=== PATIENT | female | born 1945 | race Caucasian/White ===

== ENCOUNTER 2020-11-05 12:42 | Outpatient (REF) | payer MEDICARE, MEDICAID, SELFPAY ==
[2020-11-05 13:07] VITALS: BP 129/76; PULSE 77; RESP 16; TEMP 36.6; O2SAT 95
== END 2020-11-05 12:43 | disposition home or self-care (01) ==
LOC: HO.MS 12:42
PROVIDERS: PCP Family Medicine; Visit Provider Ophthalmology
PROC: (CPT 66821; principal; 2020-11-05 17:00)
DX: H26.491 Other secondary cataract, right eye (principal); Z83.511 Family history of glaucoma; H40.013 Open angle with borderline findings, low risk, bilateral; Z96.1 Presence of intraocular lens; J44.9 Chronic obstructive pulmonary disease, unspecified; I10 Essential (primary) hypertension; E11.9 Type 2 diabetes mellitus without complications; Z79.51 Long term (current) use of inhaled steroids; Z79.82 Long term (current) use of aspirin; Z79.84 Long term (current) use of oral hypoglycemic drugs; Z88.2 Allergy status to sulfonamides; Z88.8 Allergy status to other drugs, medicaments and biological substances
CPT/HCPCS: 66821

== ENCOUNTER 2023-03-30 12:40 | Outpatient (REF) | payer MEDICARE, MEDICAID, SELFPAY ==
[2023-03-30 15:50] VITALS: BP 166/74; PULSE 60; O2SAT 99
[2023-03-30 16:15] VITALS: BP 140/65; PULSE 73; RESP 16; TEMP 36.9; O2SAT 98
== END 2023-03-30 12:41 | disposition home or self-care (01) ==
LOC: HO.MS 12:40
PROVIDERS: PCP Family Medicine; Visit Provider Ophthalmology
PROC: (CPT 37609; principal; 2023-03-30 14:30)
DX: M31.6 Other giant cell arteritis (principal)
CPT/HCPCS: 88305

== ENCOUNTER 2023-05-27 12:22 | Emergency (ER) | payer MEDICARE, MEDICAID, SELFPAY ==
--- NOTE | ~2023-05-27 | US_ITS ---
EXAMINATION: US VENOUS ULTRASOUND WITH DOPPLER LOWER EXTREMITY, RIGHT CLINICAL INFORMATION: Right leg pain COMPARISON: None available. TECHNIQUE: Ultrasound of the deep veins is performed from the hip to the calf with compression sonography and color and pulse Doppler assessment. Spectral analysis with color-flow imaging is performed. FINDINGS: There is normal venous compression and respiratory variation and augmented flow. The visualized common femoral vein, superficial femoral vein, profunda femoral vein, popliteal vein, and the trifurcation region shows no evidence of deep venous thrombosis. There is no significant popliteal fossa cyst. If the patient's symptoms persist, followup ultrasound in 5 days 7 days might be of value to exclude proximal propagation from a non-visualized calf vein. US/US venous duplex LE RT IMPRESSION: No DVT demonstrated in the right lower extremity.
--- NOTE | ~2023-05-27 | XR_ITS ---
EXAMINATION: XR ANKLE, RIGHT XR FOOT, RIGHT CLINICAL INFORMATION: Pain. COMPARISON: None available. TECHNIQUE: Right ankle 2 views. Right foot 3 views. FINDINGS: ANKLE: There is diffuse soft tissue swelling, including prominent bimalleolar soft tissue swelling. Ankle mortise is maintained. Subtle subchondral cysts in the medial malleolus and the distal fibula suggesting mild talocrural joint arthritis. There are small ossifications distal to the medial malleolus, medial to the talus, from age-indeterminate trauma. No acute fracture is otherwise seen. FOOT: Dorsal foot soft tissue swelling. No visible acute fracture or dislocation. Alignment is anatomic. Tarsometatarsal alignment is maintained. Mild dorsal spurring in the midfoot, on the lateral projection. Anterior calcaneal process appears intact. Moderate plantar calcaneal spur. Small posterior calcaneal spurring. Mild tibiotalar joint effusion. XR/XR foot RT min 3V IMPRESSION: ANKLE: Prominent soft tissue swelling. Small ossifications distal to the medial malleolus, from age-indeterminate trauma. Mild talocrural joint arthritis. Mild tibiotalar joint effusion. FOOT: No radiographic evidence of acute fracture or malalignment. Dorsal foot soft tissue swelling. Calcaneal spurring.
--- NOTE | ~2023-05-27 | XR_ITS ---
EXAMINATION: XR ANKLE, RIGHT XR FOOT, RIGHT CLINICAL INFORMATION: Pain. COMPARISON: None available. TECHNIQUE: Right ankle 2 views. Right foot 3 views. FINDINGS: ANKLE: There is diffuse soft tissue swelling, including prominent bimalleolar soft tissue swelling. Ankle mortise is maintained. Subtle subchondral cysts in the medial malleolus and the distal fibula suggesting mild talocrural joint arthritis. There are small ossifications distal to the medial malleolus, medial to the talus, from age-indeterminate trauma. No acute fracture is otherwise seen. FOOT: Dorsal foot soft tissue swelling. No visible acute fracture or dislocation. Alignment is anatomic. Tarsometatarsal alignment is maintained. Mild dorsal spurring in the midfoot, on the lateral projection. Anterior calcaneal process appears intact. Moderate plantar calcaneal spur. Small posterior calcaneal spurring. Mild tibiotalar joint effusion. XR/XR ankle RT min 3V IMPRESSION: ANKLE: Prominent soft tissue swelling. Small ossifications distal to the medial malleolus, from age-indeterminate trauma. Mild talocrural joint arthritis. Mild tibiotalar joint effusion. FOOT: No radiographic evidence of acute fracture or malalignment. Dorsal foot soft tissue swelling. Calcaneal spurring.
[2023-05-27 12:27] VITALS: BP 115/64; PULSE 96; RESP 18; TEMP 36.3; O2SAT 97; BMI 45.4
--- NOTE | 2023-05-27 12:27 | ED.GENADULT ---
HPI - General Adult General Chief complaint: Extremity Injury, Lower Stated complaint: Swollen foot Time Seen by Provider: 05/27/23 13:29 Source: patient Mode of arrival: ambulatory Limitations: no limitations History of Present Illness HPI narrative: Patient is a 70-year-old female with history of DM, high cholesterol presenting to the emergency department with complaint of right ankle and foot pain and swelling since yesterday morning. Patient reports that she was asymptomatic when she went to bed the night before. States that when she attempted to get out of bed to go to the bathroom yesterday morning, she developed severe pain to right foot. Then she noted the swelling and mild redness. Denies any numbness or tingling. Denies any injury to the area. Denies fevers. Denies chest pain, palpitations, shortness of breath. Does report some right calf pain. Did not take any [id number] medications prior to arrival. MD complaint: right foot pain Onset (ago): day(s) Location: right and lower extremity Radiation: proximal Severity: severe Severity scale (1-10): 10 Quality: aching Pain Consistency: constant Relieving factors: rest Exacerbating factors: movement and other (Weight-bearing) Associated symptoms: denies other symptoms Treatments prior to arrival: none Related Data Previous Rx's Medication Instructions Recorded naproxen 500 mg tablet 500 mg PO BID #30 tabs 05/27/23 Allergies Allergy/AdvReac Type Severity Reaction Status Date / Time Sulfa (Sulfonamide Allergy Swelling Verified 11/05/20 15:38 Antibiotics) hydrochlorothiazide AdvReac Fainting Verified 11/05/20 15:39 HORSE SERUM Allergy Anaphylaxis Uncoded 11/05/20 15:37 Review of Systems Review of Systems: As per HPI. Yes all other systems are reviewed and are negative Constitutional: Constitutional: Reports as per HPI [facility] Social History Social History Smoked in Last 30 Days: No Use of substances other than those prescribed or required for medical reasons: No Advance Directives: Yes Advance Directives Information Provided: No Advance Directives on File: No Physical Exam ED Vital Signs: Vital Signs - 24 hr 05/27/23 12:27 05/27/23 14:14 Temperature 97.3 F Pulse Rate 96 98 Respiratory Rate 18 16 Blood Pressure 115/64 140/72 H Pulse Oximetry 97 97 Oxygen Delivery Method Room Air Room Air BMI result Body Mass Index 45.4 Vital signs have been reviewed and appear to be correct. Blood pressure normal. Heart rate normal. Respiratory rate normal. Temperature normal. Oxygen saturation normal. Const General: cooperative, healthy appearing and no acute distress Orientation/consciousness: oriented to person, oriented to place, oriented to time and patient oriented x3 Limitations: no limitations [facility] Head: Yes normocephalic and Yes atraumatic Ears: external ears normal General nose exam: Normal external nose present Face and sinus: Yes face symmetric Mouth: oropharynx normal and moist mucous membranes Throat: Yes uvula midline Eyes Pupils: Equal, round and reactive pupils present Neck Neck: Yes normal visual inspection and Yes supple Resp Effort & Inspection: normal respiratory effort and able to speak in complete sentences Auscultation: clear to auscultation bilaterally Cardio Rate: regular rate Rhythm: regular rhythm Heart sounds: S1 normal heart sound present and S2 normal heart sound present GI Palpation (GI): Soft to palpation and nontender Auscultation: normoactive bowel sounds General: Yes no CVA tenderness Back/Spine/Pelvis Back: no CVA tenderness Skin General skin exam: elasticity normal and turgor normal Neuro General: oriented to person, oriented to place, oriented to time, patient oriented x3, moves all extremities, no focal motor deficits and CN's II-XI intact bilaterally Cranial nerves: Yes Equal, round and reactive pupils present Cognition (Neuro): normal cognition Extrem General: Yes full ROM Right lower extremity: lower leg Details: normal to inspection and tenderness Location: of the posterior calf, ankle Details: abnormal to inspection Details: erythematous (mild), tenderness Location: other (diffuse), edema Details: pitting and 2+, abnormal ROM Details: with range as follows (limited in all directions due to pain) and warmth Location: diffusely; no abrasions, no lacerations, no ecchymosis, no penetrating wound and achilles tendon exam normal and foot Details: normal capillary refill, tenderness (diffuse), toes with normal ROM, warmth Location: diffusely, edema Location: diffusely Details: pitting and 2+, vascular exam Details: dorsalis pedis pulse present, posterior tibial pulse present and normal capillary refill and motor-sensory exam Details: two point discrimination normal and light-touch normal; no abrasion, no laceration, no ecchymosis and no puncture wound Left lower extremity: normal to inspection, full ROM and normal capillary refill Psych Mental Status: mental status grossly normal Affect: normal affect Thought process: Normal thought process present Course Course Course Narrative: This is an RME: Additional HPI, ROS, PE not included below will be deferred to primary provider. This is a [id number], with a hx of DM type II, HTN, and COPD, presenting to the ER with a complaint of right foot swelling and pain since yesterday. No trauma or injury. Pain worsens with weight bearing - in wheelchair. Patient also endorsing some right calf pain. Extremity is warm, faintly erythematous, and edematous. Difficulty with range of motion secondary to pain. No fevers or chills. No history of gout. Plan: Labs, x-ray, ultrasound Medical Decision Making Medical Decision Making [facility] Narrative: Patient is a 70-year-old female with history of DM, high cholesterol presenting to the emergency department with complaint of right ankle and foot pain and swelling since yesterday morning. On exam patient is awake, A+Ox3, VS WNL, afebrile, normal neurological exam without focal deficits, physical exam findings as above. Given reported symptoms and physical exam findings, initial differential includes DVT, gout, fracture, sprain, strain. Less likely cellulitis. Unlikely osteomyelitis. Patient declining pain medication. Labs notable for no leukocytosis, glucose elevated, uric acid elevated, no other significant electrolyte abnormalities. X-ray notable for no evidence of fracture. Ultrasound notable for no DVT. My interpretation is in agreement with the radiologist's interpretation. Will treat for gout with course of naproxen as patient states she was recently weaned off of prednisone and does not want to take prednisone again, advised patient to follow-up with PCP to advise of this diagnosis and treatment plan. Return precautions discussed at bedside. Patient verbalized understanding of and agreement with plan. Differential Diagnosis Differential Diagnoses: The differential diagnosis associated with the presentation includes As per [facility]. Lab Data [facility] Lab Attestation statement: I reviewed the patient's lab results. As per [facility]. 05/27/23 12:39 05/27/23 12:39 Labs: Lab Results 05/27/23 05/27/23 Range/Units 12:39 13:35 WBC 10.7 (4.8-10.8) X10*3/uL RBC 4.88 (4.20-5.50) X10*6/uL Hgb 13.7 (12.0-16.0) g/dl Hct 41.9 (37.0-47.0) % MCV 85.9 (80.0-98.0) fL MCH 28.1 (27.0-33.0) pg MCHC 32.7 (31.0-35.0) g/dl RDW 14.2 (11.0-16.0) % Plt Count 302 (160-400) X10*3/uL MPV 10.3 (9.4-12.3) fL Immature Gran % (Auto) 0.6 H (0.0-0.4) % Neut % (Auto) 82.1 H (45-73) % Lymph % (Auto) 6.9 L (20-40) % Hamblen % (Auto) 10.0 (2-11) % Eos % (Auto) 0.2 (0-4) % Baso % (Auto) 0.2 (0-2) % Lymph # (Auto) 0.7 L (1.2-4.9) X10*3/uL Hamblen # (Auto) 1.1 (0.1-1.2) X10*3/uL Eos # (Auto) 0.0 (0.0-0.4) X10*3/uL Baso # (Auto) 0.0 (0.0-0.2) X10*3/uL Abs Immat Gran (auto) 0.06 H (0.00-0.03) X10*3/uL Absolute Neuts (auto) 8.8 H (2.0-8.3) x10*3/uL Absolute Nucleated RBC 0.000 (0.0-0.012) X10*3/uL Nucleated RBC % (auto) 0.0 (0.0-0.2) /100WBC Sodium 138 (135-145) mmol/L Potassium 4.1 (3.3-5.1) mmol/L Chloride 104 (96-108) mmol/L Carbon Dioxide 26 (22-29) mmol/L Anion Gap 12 (12-20) BUN 14 (9-16) mg/dL Creatinine 0.88 (0.5-1.4) mg/dL Estim Creat Clear Calc 55.5 Estimated GFR > 60 POC Glucose 206 H (60-115) mg/dL Random Glucose 261 H (60-115) mg/dL Uric Acid 6.1 H (2.4-5.7) mg/dL Calcium 9.8 (8.4-10.2) mg/dL Total Bilirubin 2.2 H (0.0-1.0) mg/dL Direct Bilirubin 0.7 H (0.0-0.5) mg/dL AST 20 (5-31) U/L ALT 19 (0-31) U/L Alkaline Phosphatase 64 (39-117) U/L Total Protein 7.7 (6.5-8.0) g/dL Albumin 3.9 (3.5-5.0) g/dL Independent Interpretation I performed an independent interpretation of an: Plain X-Ray and Ultrasound Interpretation: No evidence of fracture on x-ray No evidence of DVT on ultrasound Radiology Impression Discussion of test interpretation with radiology: I have reviewed the radiologist's reading. External Record Review External record reviewed: Inpatient record, Office record and Outpatient record Prescription Management I considered prescription management with: Pain Medication Discharge Plan Discharge Clinical Impression: Gout attack Qualifiers: Gout site: ankle Encounter type: initial encounter Laterality: right Patient Disposition: Home, Self-Care Instructions: Low Purine Diet (ED), Gout (ED) Additional Instructions: You were evaluated in the emergency department today for right ankle and foot pain and swelling. Your evaluation suggests that your symptoms are due to a gout flare. You are being prescribed naproxen which you should begin taking twice daily as prescribed. Please contact your primary care provider for a follow-up appointment. Return to the emergency department if you develop worsening redness, swelling, new weakness, numbness, tingling or change of color to your foot, fever 100.4? F or greater or other concerning symptoms. Prescriptions: New naproxen 500 mg tablet 500 mg PO BID Qty: 30 0RF
[2023-05-27 12:44] LABS: MANUAL DIFF FLAG NO
[2023-05-27 12:45] LABS: Basophils Percent Auto 0.2 % (0-2); Eosinophils Percent Auto 0.2 % (0-4); Hematocrit 41.9 % (37.0-47.0); Hemoglobin 13.7 g/dl (12.0-16.0); Imm Gran Abs Auto 0.06 X10*3/uL (0.00-0.03); Imm Gran Pct Auto 0.6 % (0.0-0.4); Lymphocytes Absolute Auto 0.7 X10*3/uL (1.2-4.9); Lymphocytes Percent Auto 6.9 % (20-40); Mean Corpuscular HGB Conc 32.7 g/dl (31.0-35.0); Mean Corpuscular Hemoglobin 28.1 pg (27.0-33.0); Mean Corpuscular Volume 85.9 fL (80.0-98.0); Mean Platelet Volume 10.3 fL (9.4-12.3); Monocytes Absolute Auto 1.1 X10*3/uL (0.1-1.2); Neutrophils Absolute Auto 8.8 x10*3/uL (2.0-8.3); Neutrophils Percent Auto 82.1 % (45-73); Platelet Count 302 X10*3/uL (160-400); Red Blood Count 4.88 X10*6/uL (4.20-5.50); Red Cell Distribution Width 14.2 % (11.0-16.0); White Blood Count 10.7 X10*3/uL (4.8-10.8)
[2023-05-27 12:59] LABS: Alanine Aminotransferase 19 U/L (0-31); Albumin Level 3.9 g/dL (3.5-5.0); Alkaline Phosphatase 64 U/L (39-117); Anion Gap 12 (12-20); Aspartate Amino Transferase 20 U/L (5-31); Bilirubin Direct 0.7 mg/dL (0.0-0.5); Bilirubin Total 2.2 mg/dL (0.0-1.0); Blood Urea Nitrogen 14 mg/dL (9-16); Calcium 9.8 mg/dL (8.4-10.2); Carbon Dioxide 26 mmol/L (22-29); Chloride 104 mmol/L (96-108); Creatinine Clr Calc Pharmacy 55.5; Estimated Glomerular Filt Rate > 60; Glucose Random 261 mg/dL (60-115); Potassium 4.1 mmol/L (3.3-5.1); Sodium 138 mmol/L (135-145); Total Protein 7.7 g/dL (6.5-8.0)
[2023-05-27 13:38] LABS: Glucose, Whole Blood 206 mg/dL (60-115)
[2023-05-27 14:01] LABS: Uric Acid 6.1 mg/dL (2.4-5.7)
[2023-05-27 14:14] VITALS: BP 140/72; PULSE 98; RESP 16; O2SAT 97
[2023-05-27] MEDS: NaPROXEN 500 MG TABLET PO (15:53)
== END 2023-05-27 15:58 | disposition home or self-care (01) ==
PROVIDERS: Physician Assistant Medical; Registered Nurse Emergency; Emergency Provider Emergency Medicine; PCP Family Medicine
DX: M10.071 Idiopathic gout, right ankle and foot (principal); R60.0 Localized edema; Z79.899 Other long term (current) drug therapy
CPT/HCPCS: 36415; 73610; 73630; 80048; 80076; 82947; 84550; 85025; 93971; 99284